=== PATIENT | male | born 1930 | race Caucasian/White ===

== ENCOUNTER 2016-05-02 11:36 | Emergency (ER) | payer OTHER ==
[~2016-05-02] VITALS: Ht 172.7 cm; Wt 80.1 kg
[2016-05-02 11:42] VITALS: TEMP 36.8; Ht 172.7 cm; Wt 80.1 kg
--- NOTE | 2016-05-02 12:08 | EMERGENCY ROOM VISIT NOTE ---
ED Visit Note First contact with patient: 11:53 I did evaluate and examine this patient myself. I did guide management for the patient. I agree with the PA's assessment as discussed. Please see the PAs dictation for further details. 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 The patient denies any fecal or urinary incontinence. He has no numbness or weakness in his legs or any saddle anesthesia. He denies fever. His oncologist advised the family to go to an emergency department to be evaluated by a spinal surgeon for possible admission or referral. The case was discussed with orthopedic spine.
[2016-05-02] MEDS ORDERED: CEPH500C PO (14:08)
[2016-05-02] MEDS ORDERED: OXYC1TAB3 PO (14:08)
[2016-05-02 14:37] VITALS: BP 91/58; PULSE 85; O2SAT 98
--- NOTE | 2016-05-02 15:11 | EMERGENCY ROOM VISIT NOTE ---
History First contact with patient: 11:53 Chief Complaint: BACK PAIN Stated Complaint: SPINAL STENOSIS History of Present Illness The patient is a 85 year old male who presents to the Emergency Room at the referral of his public relations sales marketing/oncologist, Dr. Murphy, for evaluation of back pain. 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 He had an MRI performed on 04/25/16 that showed diffuse spinal metastasis, as well as an area of severe stenosis in the lumbar spine. The patient is currently taking Percocet 7.5/[address] Murphy. The patient reports that the medicine is helping his pain for only 3-4 hours. The Percocet is prescribed for every 6 hours. Otherwise the patient denies any bladder or bowel incontinence, saddle anesthesias, lower extremity weakness, foot drop or numbness. The patient has had no recent fever. He is currently under the care of urology for chemotherapy. The patient currently rates his discomfort a 4 out of 10. Review of Systems 10 system review was performed and was negative except for pertinent positives and negatives as indicated in history of present illness Past Medical/Surgical History Medical Problems: (1) Prostate cancer Surgical Problems: (1) No history of previous surgery Family History Unremarkable Social History Smoking Status: Never Smoker Alcohol Use: occasionally Marital Status: Occupation Status: retired Allergies Coded Allergies: No Known Allergies (Unverified , 05/02/16) Physical Exam Vital Signs Date Time Temp Pulse Resp B/P Pulse Ox O2 Delivery O2 Flow Rate FiO2 05/02/16 14:37 85 18 91/58 98 Room Air 05/02/16 13:38 84 18 127/66 96 Room Air 05/02/16 11:42 36.8 84 20 120/64 100 Room Air Physical Exam CONSTITUTIONAL: Healthy and well nourished. Patient does not appear in any acute distress. HEENT: Normocephalic, atraumatic. Pupils equal, round and reactive. NECK: Full active range of motion without discomfort. RESPIRATORY: Clear to auscultation bilaterally with no wheezing, crackles, rhonchi or stridor. CARDIOVASCULAR: Regular rate and rhythm with no murmurs, rubs or gallops. GASTROINTESTINAL: Bowel sounds present in all quadrants. Soft and nontender to palpation. MUSCULOSKELETAL: Examination shows generalized lower back tenderness to palpation. Negative straight leg raise. Negative logroll. No soft tissue edema or erythema noted of the back. Ankle plantar/dorsiflexion strength is 5 out of 5 and symmetric bilaterally. Pedal pulses are intact. INTEGUMENTARY: No rash or other significant dermatologic conditions noted. NEUROLOGIC: Cranial nerves II-XII grossly intact. No focal neurologic deficits noted. Lower extremities are sensory intact with deep tendon reflexes 2+ and symmetric bilaterally. Medical Decision & Procedures ED Course Patient history and physical exam were performed. Nurse's notes were reviewed. Vital signs were reviewed and normal. The patient is afebrile. Complete history was obtained from the daughter as the patient reports that he has a hard time hearing. Further details are discussed in the history of present illness section. The daughter admits that she was told to either bring the patient to the [facility] emergency Department, or [place] emergency department for the fact that the patient is still having back pain, and abnormal MRI findings. The daughter brought the MRI disc and report with her. I did review the radiologist's report that accompanied the disc, showing diffuse osseous metastases within the thoracic and lumbar spine. The L3 4 area shows severe disc degeneration with disc space narrowing, osteophytes and diffuse disc bulging. Severe ligamentum flavum and facet joint hypertrophy is noted. No disc herniations or protrusions noted there is critical spinal stenosis with 4 mm canal clustering nerve roots and thecal sac, concerning for impingement. Cauda equina syndrome is considered. I did advise the patient and daughter that his clinical exam is certain he not consistent with an emergent cauda equina syndrome at this time. The patient also reports that his pain is being well controlled for 3-4 hours with his current Percocet dosing. At this point, the case was further discussed with Dr. Oliveira, ED attending physician, who performed an independent evaluation, and suggested consultation with Dr. Leal, [facility] spine surgeon on-call. The images were not available on our system as the MRI was performed at [facility]. The disc was taken to our radiology department for up load, but these images were not available for his review. I did provide him with the radiologist reading. He states that according to this reading, it appears that the patient's stenosis is from an ongoing chronic process as opposed to a metastatic process at that level. He suggested that these cases usually are treated with chemotherapy and radiation therapy. Based on MRI readings, he does not feel that surgical intervention is warranted. He suggested further family consultation with urology and hematology/oncology. If the patient had intractable pain, he would be happy to see the patient, or suggested hospitalist observation/admission for symptoms. Because his pain is currently being controlled, he recommends outpatient management. To discuss further details of this case, I also spoke with his public relations sales marketing/oncologist, Dr. Murphy, in [place]. She was concerned because of the patient's severe pain and MRI findings. I also explained to her that he currently does not have any clinical exam findings consistent with a cauda equina syndrome. She reports that the patient is currently on Casodex, and will be starting Lupron tomorrow. He also is currently undergoing physical therapy as well for his back, and the patient admits that the therapy is helping with his pain. At this point, she suggested that the patient's care be directed by urology and the patient's PCP, Dr. Ocasio. At this point, I also discussed the case further with Dr. Ocasio who stated that he would schedule the patient for further evaluation. I also discussed pain management with Dr. Ocasio as well, and he reported that he would discuss this with the patient as well. He will determine if the patient will require a [facility] spine surgery consult. A lot will depend on the patient's response to his chemotherapy, physical therapy and medication management. All of this information was discussed with the patient and daughter, who voiced understanding, and agrees with this plan of care. I did encourage the patient to take his Percocet every 4 hours as needed as the medicine really only lasts for 3-4 hours. He can also double up his medication as needed, taking 2 pills every 4 hours. I did warn him about sedation and constipation with this increased narcotic dosing. He was instructed to seek further emergent reevaluation for any symptoms consistent with cauda equina syndrome. The symptoms were well discussed with the family. He was also instructed to seek further emergency evaluation for any developing fever. The patient was happy with plan of care, voiced understanding of all discharge instructions, and rated his pain a 3 out of 10 at the time of discharge. Medical Decision Impression Primary Impression: Malignant neoplasm of prostate metastatic to bone Additional Impression: Back pain Departure Information Dispostion Home / Self-Care Referrals Markie Manuel M.D. Forms HOME CARE DOCUMENTATION FORM, IMPORTANT VISIT INFORMATION Patient Instructions My [facility] Additional Instructions Follow-up with your PCP for further reevaluation and management. Continue with your current urology treatment. Problem Qualifiers Additional Impression: Back pain Back pain location: low back pain Chronicity: acute Back pain laterality: unspecified Sciatica presence: without sciatica Qualified Codes: M54.5 - Low back pain
== END 2016-05-02 14:56 | disposition home or self-care (01) ==
LOC: C.EDB 11:38 → C.EDC 14:56
DX: C61 Malignant neoplasm of prostate (principal); C79.51 Secondary malignant neoplasm of bone; M54.5 Low back pain